=== PATIENT | female | born 1960 | race Caucasian/White ===

== ENCOUNTER → 2016-12-01 | Day surgery (SDC) | payer BC ==
[~2016-12-01] VITALS: Ht 170.2 cm; Wt 89.4 kg
[~2016-12-01] MED LIST: ACETAMINOPHEN 1000 MG/100 ML VIAL IV ONE; ACETAMINOPHEN/HYDROcodone 325 MG/5 MG TAB PO PRN; BUPIVACAINE HCL PF 0.5% 30 ML VIAL NB ONE; BUPIVACAINE HCL PF 0.5% 30 ML VIAL ONE; CEPH-460 PO; DEXAMETHASONE SOD PHOS 4 MG/ML VIAL ONE; DO NOT ADM ANY ANTICOAGULANT DRUGS XX PRN; FAMOTIDINE 20 MG/2 ML VIAL ONE; HYDR-3288 PO; HYDROmorphone HCL PF 2 MG/ML VIAL ONE; INSULIN HUMAN REGULAR 1,000 UNITS/10 ML VIAL SQ PRN; LACTATED RINGER'S 1000 ML IV SCH; LIDOCAINE HCL 2% 50 ML VIAL ONE; MEPERIDINE HCL 50 MG/ML VIAL IM PRN; METOPROLOL TARTRATE 25 MG TAB PO PRN; MIDAZOLAM HCL 5 MG/5 ML VIAL ONE; NEOMYCIN/POLYMYXIN 1 ML G.U. IRRIGANT IR ONE; OMEP40CA2 PO; OXYC20TA17 PO; PROZ20CA11 PO; SODIUM CHLORID 0.9% 500 ML IV SCH; TYLETAB34 PO; ceFAZolin 1,000 MG/NS 100 ML IV SCH; ceFAZolin 2 GM PREMIX 50 ML IV SCH; ceFAZolin INJ 1,000 MG VIAL IV ONE
[2016-12-01 08:05] VITALS: BP 147/82; PULSE 74; RESP 18; TEMP 97.1; O2SAT 97
[2016-12-01 08:41] LABS: AUTOMATED NEUTROPHIL # 2.1 TH/MM3 (1.8-7.7); BASOPHIL % 0.6 % (0.0-2.0); EOSINOPHIL # 0.1 TH/MM3 (0-0.4); EOSINOPHIL % 2.8 % (0.0-4.0); LYMPH % 33.1 % (9.0-44.0); LYMPHOCYTE # 1.3 TH/MM3 (1.0-4.8); MEAN CORPUSCULAR HEMOGLOBIN 24.8 PG (27.0-34.0); MEAN CORPUSCULAR HGB CONC 32.2 % (32.0-36.0); MONO % 10.8 % (0.0-8.0); NEUT % 52.7 % (16.0-70.0); PLATELET COUNT 233 TH/MM3 (150-450); RED BLOOD COUNT 4.55 MIL/MM3 (4.00-5.30); RED CELL DISTRIBUTION WIDTH 16.4 % (11.6-17.2)
[2016-12-01 08:47] LABS: HEMO FLAGS AUTO DIFF
[2016-12-01 09:27] LABS: PLATELET ESTIMATE SMEAR NORMAL (NORMAL); PLATELET MORPHOLOGY NORMAL (NORMAL); SCAN/DIFF AUTO DIFF CONFIRMED
--- NOTE | 2016-12-01 09:43 | EKG ---
Date Performed: 12/01/2016 Time Performed: 08:26:41 PTAGE: 56 years EKG: Sinus rhythm NORMAL ECG NO PREVIOUS TRACING DOCTOR: Behzad Rajput Interpretating Date/Time 12/01/2016 09:41:36
[2016-12-01 13:35] VITALS: BP 126/71; PULSE 76; RESP 16; TEMP 97.9; O2SAT 97
--- NOTE | 2016-12-01 13:38 | MP ---
cc: SAMUEL NINO III, M.D. DATE OF OPERATION 12/01/2016 PREOPERATIVE DIAGNOSIS Right distal radius fracture. PROCEDURE 1. Right distal radius open reduction, internal fixation. 2. Use of image intensifier. SURGEON Samuel Nino III, MD PROCEDURE The patient was brought to the operating room and placed supine on the operating room table. After the correct site and side of the surgery were verified by members of each team in the room multiple times including the patient and myself and after adequate preoperative markings and preoperative written consent were verified by everyone and after adequate preoperative time-out was performed to everyone's satisfaction, after adequate nerve block and general anesthesia had been achieved, the right upper extremity was prepped and draped in the traditional sterile surgical fashion. Using a mini C-arm, a the site of the intended procedure was verified. Additional local anesthetic was injected in the skin. The limb was exsanguinated with a gentle Forest wrap and a highly placed, well-padded axillary tourniquet was inflated to 200 mmHg for a total of 70 minutes. A longitudinal incision was made on the volar aspect of the wrist overlying the flexor carpi radialis tendon. This was carried down through the skin and subcutaneous tissue. Bipolar electrocautery was used as needed. Blunt dissection was then performed. The flexor carpi radialis tendon was retracted ulnarly. The radial artery was identified and retracted radially protected the entire time. The pronator quadratus was then sharply elevated off of the distal radius and the fracture was identified. Debridement of devitalized bone and soft tissue was performed. The fracture was distracted and thorough irrigation was performed with saline solution. A small amount of cancellus bone graft was used dorsally to assist with reduction. Provisional fixation was performed and achieved, held in place with K-wires. Using the Synthes distal radius repair set, the distal fragment was secured and reduced to where the volar tilt was near-normal and it was approximately 5-10 degrees. The radial inclination was restored and six screws were placed distally and three screws proximally. They were all tailored to length. Some were locking, some were smooth, some were cortical, but anatomic reduction was achieved. Passive range of motion examination was full and unrestricted. There was no crepitance either. X-rays in the form of mini C-arm was used to guide this and the joint surfaces were cleaned. Thorough irrigation with 3 liters worth of saline irrigation was used throughout the case. The pronator quadratus was reapproximated over the majority of the hardware using 3-0 Vicryl sutures. The axillary tourniquet was released at this time and the hand and all the fingers on the right became immediately soft, pink and warm and brisk capillary refill of less than 2 seconds. The radial artery became soft, full and pulsatile and there was no active bleeding. The deep subcutaneous tissues were reapproximated using 3-0 Vicryl sutures and the skin edges reapproximated using running 4-0 nylon suture. The hand and arm were thoroughly cleansed and dried. Final x-rays were obtained. Betadine and Adaptic dressings were applied on top of the wound, followed by a very bulky dressing. A short-arm, 4-inch splint was made in the usual fashion leaving the thumb and the fingers free, wrapping around the hand, wrist and forearm. The patient was awakened from anesthesia and transported to the Post-Anesthesia Care Unit awake and in stable condition at the end the case. Sponge, needle and instrument counts were correct at the end of the case as reported by the nurses in the room. MD ADAMARIS Vanessa III/SARAH /12:40 PM /1:27 PM
== END | disposition home or self-care (01) ==
LOC: HSDC 07:55
PROVIDERS: ATTEND Orthopaedic Surgery Hand Surgery
DX: S52.501A Unspecified fracture of the lower end of right radius, initial encounter for closed fracture (principal); E78.5 Hyperlipidemia, unspecified; Z01.810 Encounter for preprocedural cardiovascular examination; W19.XXXA Unspecified fall, initial encounter
CPT/HCPCS: 01830; 25607; 64415; 76000; 85025; 93005; C1713; J0131; J0690; J1100; J1170; J2250; J3010